=== PATIENT | female | born 1975 | race Caucasian/White ===

== ENCOUNTER 2017-01-05 08:16 | Emergency (ER) | payer OTHER ==
[2017-01-05 08:34] VITALS: BP 127/57
--- NOTE | 2017-01-05 08:45 | UC ---
Lower Extremity/Ankle HPI - HPI Summary HPI Summary: 41 year old female with history of smoking. c/o R medial aspect of foot- painful. States skin is rough there. L 5th toe pain that she has a hard time wearing sneakers. States has been going on for 3 months. [ End ] - History of Current Complaint Chief Complaint: UCLowerExtremity Stated Complaint: BILATERAL FOOT PAIN Time Seen by Provider: 01/05/17 08:37 Hx Obtained From: Patient Hx Last Menstrual Period: 2013, HAD RADIATION FOR CERVICAL CA Onset/Duration: Gradual Onset Severity Initially: Mild Severity Currently: Moderate Aggravating Factor(s): Standing, Ambulation Alleviating Factor(s): Rest Able to Bear Weight: Yes - Allergies/Home Medications Allergies/Adverse Reactions: Allergies Allergy/AdvReac Type Severity Reaction Status Date / Time epinephrine makes heart race AdvReac See Comment Uncoded 01/05/17 08:27 Home Medications: Home Medications Naproxen Sodium [Naproxen Sodium 220 mg] 440 mg PO DAILY PRN 01/05/17 [History Confirmed 01/05/17] PMH/Surg Hx/FS Hx/Imm Hx Previously Healthy: Yes - Surgical History Surgical History: Yes Surgery Procedure, Year, and Place: TUBAL LIGATION, internal radiation 2013 - Family History Known Family History: Positive: Cardiac Disease, Hypertension, Diabetes - grandmother - Social History Occupation: Employed Full-time Alcohol Use: Occasionally Substance Use Type: None Smoking Status (MU): Light Every Day Tobacco Smoker Type: Cigarettes Amount Used/How Often: 3 cigarettes daily Length of Time of Smoking/Using Tobacco: 26 YRS "ON AND OFF" Have You Smoked in the Last Year: Yes Review of Systems Skin: Other - corns on foot All Other Systems Reviewed And Are Negative: Yes Physical Exam Triage Information Reviewed: Yes Appearance: Well-Appearing, No Pain Distress, Well-Nourished Vital Signs: Initial Vital Signs Temp 97.8 F 01/05/17 08:28 Pulse 65 01/05/17 08:28 Resp 16 01/05/17 08:28 BP 127/57 01/05/17 08:28 Pulse Ox 100 01/05/17 08:28 Vital Signs Reviewed: Yes Respiratory Exam: Normal Cardiovascular Exam: Normal Musculoskeletal Exam: Normal Neurological Exam: Normal Psychological Exam: Normal Skin Exam: Normal Skin: Positive: Other - thickened skin / corn on the left 1MTP laterally and also in between the 4th and 5th toe. no erythema. no skin change otherise . pulses intact. no discharge. Lower Extremity Course/Dx - Course Course Of Treatment: refer to podiatry for corn treatment - Differential Dx/Diagnosis Differential Diagnosis/HQI/PQRI: Sprain, Strain, Tendonitis, Other - corn Provider Diagnoses: corns / callositis left foot Discharge - Discharge Plan Condition: Good Disposition: HOME Referrals: Mehdi Bosch MD [Primary Care Provider] - If Needed Hero Serrano DPM [Doctor of Podiatric Medicine] - 1 Week
== END 2017-01-05 08:55 | disposition home or self-care (01) ==
LOC: UCCORT 08:16
DX: L84 Corns and callosities (principal); Z85.41 Personal history of malignant neoplasm of cervix uteri; Z92.3 Personal history of irradiation; F17.210 Nicotine dependence, cigarettes, uncomplicated
CPT/HCPCS: 99211; G0463